=== PATIENT | male | born 1960 | race Caucasian/White ===

== ENCOUNTER → 2017-09-14 | Outpatient (CLI) | payer MEDICARE, BC | LOC: GMAM 11:32 | PROVIDERS: ATTEND Family Medicine | DX: R53.83 Other fatigue (principal); Z12.5 Encounter for screening for malignant neoplasm of prostate | CPT/HCPCS: 84403; 84439; 84443; G0103 ==

== ENCOUNTER → 2017-10-01 | Outpatient (CLI) | payer MEDICARE, BC ==
--- NOTE | 2017-10-01 10:27 | US ---
EXAM DESCRIPTION: Venous,Lower Extremity LT CLINICAL HISTORY: 57 years, Male, EDE[place] COMPARISON: None TECHNIQUE: Duplex venous ultrasound of the left lower extremity was performed. FINDINGS: The left lower extremity veins are fully compressible and demonstrate physiologic responses to augmentation maneuvers. Color Doppler images show no intraluminal filling defect. IMPRESSION: Negative exam. No evidence of DVT in the left lower extremity. Electronically signed by: Sriram Moreno MD 10/01/2017 10:26 AM CDT
== END ==
LOC: LAB.O 08:54
PROVIDERS: ATTEND Internal Medicine Nephrology
DX: R60.0 Localized edema (principal); N18.3 Chronic kidney disease, stage 3 (moderate)

== ENCOUNTER → 2017-10-05 | Outpatient (CLI) | payer MEDICARE, BC | LOC: LAB.O 09:29 | PROVIDERS: ATTEND Internal Medicine Gastroenterology | DX: D50.0 Iron deficiency anemia secondary to blood loss (chronic) (principal); E87.0 Hyperosmolality and hypernatremia; E11.9 Type 2 diabetes mellitus without complications ==

== ENCOUNTER → 2019-12-02 | Outpatient (CLI) | payer MEDICARE, BC ==
--- NOTE | 2019-12-02 19:03 | US ---
EXAM DESCRIPTION: Carotid Duplex: ULTRASOUND. CLINICAL HISTORY: 59 years Male carotid atherosclerosis COMPARISON: None. TECHNIQUE: Transcutaneous scanning utilizing steinberg-scale and Doppler modes to evaluate the bilateral carotid systems and vertebral arteries. Percentage of diameter of stenosis or no stenosis recorded will be based upon NASCET criteria. FINDINGS: Peak systolic/end diastolic (CM-Sec) CCA Right 126/27 Left 144/30. ICA Right proximal 94/20, mid 85/24. Left proximal 82/21, mid 66/20. Vertebral Right 3 9/9 Left 39/11. ECA (PS Only) Right 142 left 212. ICA/CCA peak systolic ratio: Right 0.7 Left 0.6 ICA/CCA end diastolic ratio: Right 0.7 Left 0.7 Vertebral arteries: antegrade flow. Comments: Significant atherosclerotic calcification of the bilateral common carotid bifurcations and proximal ICAs. Spectral broadening and color turbulent flow bilateral proximal ICAs. Right CCA bulb: Area stenosis 39% and diameter stenosis 36%. Right proximal ICA area stenosis 95% diameter stenosis 84%. Left CCA bulb: Area stenosis 65% and diameter stenosis 54%. Proximal left ICA: Area stenosis 59% and diameter stenosis 60%. IMPRESSION: 1. Doppler evaluation of the bilateral carotid systems and vertebral arteries shows no hemodynamically significant stenoses around 70% similar to stenosis seen on grayscale imaging. Most severe in the proximal right ICA. 2. Marked amount of plaque in the carotid arteries bilaterally. Bilateral vertebral arteries showed antegrade-cephalad flow. Electronically signed by: Keon Epstein MD 12/02/2019 7:01 PM CDT
== END ==
LOC: US 13:59
PROVIDERS: ATTEND Internal Medicine Interventional Cardiology
DX: I65.23 Occlusion and stenosis of bilateral carotid arteries (principal)

== ENCOUNTER → 2020-01-27 | Outpatient (CLI) | payer MEDICARE, BC | LOC: GMAM 11:04 | PROVIDERS: ATTEND Family Medicine | DX: Z12.5 Encounter for screening for malignant neoplasm of prostate (principal); E06.3 Autoimmune thyroiditis; E11.9 Type 2 diabetes mellitus without complications; I10 Essential (primary) hypertension; E78.2 Mixed hyperlipidemia | CPT/HCPCS: 84439; 84443; G0103 ==